=== PATIENT | male | born 1980 | race Caucasian/White ===

== ENCOUNTER 2024-03-03 15:37 | Emergency (ER) | payer BC, SELFPAY ==
[2024-03-03 15:38] VITALS: BP 153/90; PULSE 86; RESP 20; TEMP 37.1; O2SAT 98; BMI 27.7
--- NOTE | 2024-03-03 15:43 | ED_ITS ---
<Statement entered by Reilly Juares MD - 03/03/24 22:13> I was consulted by the KASSI, and we discussed the complexity of the problems being addressed. I approved the treatment and management plan for this patient's care in the emergency department, thus performing a substantive portion of the medical decision making. Reilly Juares MD, [place], [facility] Discharge Plan Disposition Patient Disposition: Home, Self-Care Condition: Good Prescriptions Prescriptions: New pantoprazole [Protonix] 40 mg tablet,delayed release (DR/EC) 40 mg PO BID 14 Days Qty: 28 0RF Referrals Follow up/Referrals: Santiago Adrian [Referring] - See instructions Provider,MD Ashley [Primary Care Provider] - See instructions Activity Restrictions/Add. Instructions Additional Instructions/Restrictions: Please consider establishing care with a primary care provider of your choice. Please call tomorrow to make an appointment with Dr. Adrian's office. Please return to the emergency department for any worsening signs or symptoms as needed Clinical Impressions Clinical Impression: Abdominal pain, acute, epigastric Instructions Patient Instructions: DI for Acute Abdominal Pain Discharge ED Provider: Reilly Juares General Adult HPI General Chief complaint: Abdominal Pain Stated complaint: abdominal pain Time Seen by Provider: 03/03/24 15:40 History of Present Illness HPI narrative: For evaluation of acute abdominal pain. Patient states that he was at his desk and had acute onset of epigastric abdominal pain 1445. Patient has no significant past medical history is on no home medications and has had no previous abdominal surgery. Patient rates the pain at an 8 out of 10 at onset and currently at the time of arrival to the emergency department. He has no cardiac chest pain shortness of breath fever chills hemoptysis hematochezia and melena vomiting or diarrhea but does have nausea with the pain. Related Data Previous Rx's Medication Instructions Recorded pantoprazole 40 mg tablet,delayed 40 mg PO BID 14 days #28 tabs 03/03/24 release (Protonix) Allergies Allergy/AdvReac Type Severity Reaction Status Date / Time No Known Allergies Allergy Verified 03/03/24 15:47 [facility] Disclaimer: The information contained in this section may have been updated after the patient was seen, as this information can be updated by other users. Social History (Updated 03/03/24 @ 16:42 by ADELAIDA Spear) Smoking Status: Never smoker alcohol intake: current alcohol intake frequency: holidays/special occasions only current occupational status: employed Travel in the last 8 weeks: None ROS Obtained: Yes Systems reviewed as appropriate & no additional complaints except as documented Physical Exam General General appearance: alert and in no apparent distress Head Head exam: atraumatic and normal inspection Eye Eye exam: Present normal appearance and EOMI ENT ENT exam: Present normal exam and normal oropharynx Chest Chest inspection: Present normal inspection and symmetric chest wall rise; Absent tenderness Respiratory Respiratory exam: Present normal lung sounds bilaterally; Absent respiratory distress, wheezes, stridor or accessory muscle use Cardiovascular Cardiovascular exam: Present regular rate and normal rhythm Abdominal Exam Abdominal exam: Present soft, tenderness (Tender to palpation in the epigastrium) and normal bowel sounds; Absent guarding or rebound Extremities Exam Extremities exam: Present normal inspection and full ROM Back Exam Back exam: Present normal inspection and full ROM; Absent tenderness, CVA tenderness (R) or CVA tenderness (L) Neurological Exam Neurological exam: Present alert and oriented X3 Skin Skin exam: Present warm and dry Medical Decision Making Medical Records Medical records reviewed: Yes I reviewed the patient's medical records. David Inquiry Pt receiving controlled substance: No Vital Signs: 03/03/24 15:38 03/03/24 16:00 03/03/24 16:30 Temperature 98.7 F Temperature Source Oral Pulse Rate 75 78 Pulse Rate [Right Radial] 86 Respiratory Rate 20 Blood Pressure 142/75 H 129/87 Blood Pressure [Right Arm] 153/90 H Blood Pressure Mean [Right Arm] 111 Blood Pressure Source [Right Arm] Automatic Cuff Blood Pressure Position [Right Arm] Supine 02 Sat by Pulse Oximetry 98 97 95 Oxygen Delivery Method Room Air Room Air Room Air Lab Data Lab results reviewed: Yes I reviewed the patient's lab results. Lab Results 03/03/24 15:46: WBC 7.5, RBC 5.39, Hgb 17.0, Hct 51.4, MCV 95.5 H, MCH 31.6 H, MCHC 33.1, RDW 14.3, Plt Count 308, MPV 7.9, Neut % (Auto) 52.6, Lymph % (Auto) 38.1, [place] % (Auto) 5.8, Eos % (Auto) 2.4, Baso % (Auto) 1.1, Neut # (Auto) 4.0, Lymph # (Auto) 2.9, [place] # (Auto) 0.4, Eos # (Auto) 0.2, Baso # (Auto) 0.1, PT 10.4, INR 0.96, Sodium 143, Potassium 3.2 L, Chloride 107, Carbon Dioxide 30, Anion Gap 9.2, BUN 14, Creatinine 1.10, Estimated Creat Clear 131, Estimated GFR 72, Est GFR ( Amer) 88, Glucose 76, Calcium 9.4, Total Bilirubin 0.9, AST 45, ALT 48, Alkaline Phosphatase 56, Troponin I < 0.01, Total Protein 7.7, Albumin 4.5, Globulin 3.2, Albumin/Globulin Ratio 1.4, Lipase 81 03/03/24 15:46 03/03/24 15:46 Orders (Tests/Meds): ED MEDICATIONS Discontinued Medications Generic Name Dose Route Start Last Admin Trade Name Freq PRN Reason Stop Dose Admin Acetaminophen 1,000 mg 03/03/24 15:46 03/03/24 15:52 Acetaminophen 1,000mg/100ml Vial IV 03/03/24 15:47 1,000 mg ONCE ONE Administration Belladonna Alkaloids 60 ml 03/03/24 15:46 03/03/24 15:52 Belladonna Alkaloids 60 Ml Ml PO 03/03/24 15:47 60 ml ONCE ONE Administration Lactated Ringer's 1,000 mls @ 999 mls/hr 03/03/24 15:46 03/03/24 15:52 Lactated Ringer's 1000 Ml Bag IV 03/03/24 16:46 999 mls/hr .Q1H1M ONE Administration Iopamidol 75 ml 03/03/24 16:13 03/03/24 16:17 Iopamidol-370 (76%);100ml Bottle IV 03/03/24 16:14 75 ml ONCE ONE Administration Ketorolac Tromethamine 15 mg 03/03/24 15:46 03/03/24 15:52 Ketorolac 30mg/Ml Vial IV 03/03/24 15:47 15 mg ONCE ONE Administration Sodium Chloride 10 ml 03/03/24 16:13 03/03/24 16:17 Sodium Chloride 0.9% 10ml Syr (Rad Only) IV 03/03/24 16:14 10 ml ONCE ONE Administration ORDERS Category Date Time Status CT abdomen pelvis w con Stat Cat Scan 03/03/24 15:46 Completed Chest XR -- portable [XR chest portable] Stat Exams 03/03/24 15:46 Completed CBC w/Auto Diff [Complete Blood Count Auto Diff] Stat Lab 03/03/24 15:46 Completed CMP [Comprehensive Metabolic Panel] Stat Lab 03/03/24 15:46 Completed INR [Prothrombin Time INR] Stat Lab 03/03/24 15:46 Completed Lipase Stat Lab 03/03/24 15:46 Completed Trop I [Troponin I] Stat Lab 03/03/24 15:46 Completed Troponin I Q3H Lab 03/03/24 19:00 Ordered Troponin I Q3H Lab 03/03/24 22:00 Ordered Medical Decision Narrative: In summary patient is a 43-year-old male who presents to the emergency department for evaluation of acute epigastric abdominal pain. Patient is hemodynamically stable upon arrival, afebrile. Physical exam is remarkable for tenderness to palpation in the epigastrium with no rebound or guarding or rigidity. Bowel sounds are normal active. Breath sounds are equal bilaterally and patient is in a normal sinus rhythm on the bedside monitor. Differential diagnosis includes GERD, esophagitis, ulcer, cholelithiasis/cholecystitis, acute pancreatitis, ACS etc. Initial workup will be conducted with hematologic labs CT scan of the abdomen pelvis plain film chest x-ray twelve-lead EKG. Initial interventions include crystalloid bolus Toradol Tylenol GI cocktail. Initial workup reviewed by me shows that his hematologic labs are nonactionable including a normal troponin. My informal interpretation of the CT scan abdomen pelvis with contrast shows no acute processes.. Upon repeat evaluation patient has had complete resolution of his pain after administration of GI cocktail.. Given this I had interactive discussion with the patient about referral to to gastroenterology for an upper endoscopy. Given this patient is appropriate with GI. Patient has known PCP and I recommended that he establish care with one. Critical Care Critical Care Time Critical Care Time: No
--- NOTE | 2024-03-03 15:46 | CT_ITS ---
FINAL REPORT CLINICAL HISTORY: Acute abdominal pain FINDINGS: CT OF THE ABDOMEN AND PELVIS WITH CONTRAST Axial CT images of the abdomen and pelvis were obtained after the administration of IV contrast. Coronal and sagittal reformatted images were also obtained and reviewed.This study was performed with techniques to keep radiation doses as low as reasonably achievable (ALARA). Individualized dose reduction techniques using automated exposure control or adjustment of mA and/or kV according to the patient's size were employed. Abdomen: Mild atelectasis is noted at the lung bases.. The heart is normal in size. The liver has an unremarkable appearance, without evidence of mass or biliary ductal dilatation. Mild nonspecific gallbladder wall thickening is identified. There is questionable sludge or noncalcified stones in the gallbladder. The spleen is unremarkable. No adrenal mass is present. The pancreas has an unremarkable appearance. The kidneys are normal, without evidence of mass or hydronephrosis. The aorta is normal in caliber. There is no free fluid or adenopathy. No mass or abnormal fluid collection is seen. Pelvis: The appendix is unremarkable. The urinary bladder is unremarkable. No inflammatory process is seen. There is no evidence of mass or adenopathy. There is no evidence of bowel obstruction. A small umbilical hernia is seen containing fat only. IMPRESSION: Mild gallbladder wall thickening with questionable sludge or stones. Gallbladder ultrasound could further evaluate. Authenticated and ERN
--- NOTE | 2024-03-03 15:46 | XR_ITS ---
FINAL REPORT CLINICAL HISTORY: Epigastric abdominal pain FINDINGS: SINGLE VIEW CHEST The heart size is normal. The mediastinum is within normal limits. No acute pulmonary abnormality is identified. There is no evidence of pneumothorax. The bony thorax is intact. IMPRESSION: No acute cardiopulmonary process. Authenticated and ERN
[2024-03-03] MEDS: LACTATED RINGERS 1000ML 1,000 ML 999 ML IV (15:52)
[2024-03-03] MEDS: BELLADONNA ALKALOIDS 60 ML ML PO (15:52)
[2024-03-03] MEDS: ACETAMINOPHEN 1,000MG/100ML VIAL 1000 MG IV (15:52)
[2024-03-03] MEDS: KETOROLAC 30MG/ML VIAL 15 MG IV (15:52)
[2024-03-03 15:54] LABS: Basophils # 0.1 K/mm3 (0-0.2); Basophils % 1.1 % (0.1-2.0); Eosinophils # 0.2 K/mm3 (0.0-0.4); Eosinophils % 2.4 % (0.1-12.0); Hematocrit 51.4 % (42.0-52.0); Lymphocytes # 2.9 K/mm3 (0.7-4.5); Lymphocytes % 38.1 % (10-50); Mean Corpuscular HGB Conc 33.1 g/dL (31.8-35.4); Mean Corpuscular Hemoglobin 31.6 pg (27.0-31.2); Mean Corpuscular Volume 95.5 fl (80-94); Mean Platelet Volume 7.9 fl (7.4-10.4); Monocytes # 0.4 K/mm3 (0.1-1.0); Monocytes % 5.8 % (1.7-9.3); Neutrophils % 52.6 % (37.0-80.0); Platelet Count 308 K/mm3 (142-424); Red Blood Count 5.39 M/mm3 (4.60-6.20); Red Cell Distribution Width 14.3 % (11.5-17.5); White Blood Count 7.5 K/mm3 (4.8-10.8)
[2024-03-03 15:59] LABS: Chloride 107 mmol/L (98-107); Potassium 3.2 mmoL/L (3.5-5.1); Sodium 143 mmol/L (136-145)
[2024-03-03 16:00] VITALS: BP 142/75; PULSE 75; O2SAT 97
[2024-03-03 16:01] LABS: Alanine Aminotransferase 48 U/L (12-78); Alkaline Phosphatase 56 U/L (38-126); Anion Gap 9.2 mEq/L (5-15); Aspartate Amino Transferase 45 U/L (17-59); Bilirubin,Total 0.9 mg/dl (0.2-1.3); Blood Urea Nitrogen 14 mg/dl (9-20); Carbon Dioxide 30 mmol/L (22.0-30.0); Creatinine Clearance Estimated 131 mL/min (50-200); Estimated Glomerular Filt Rate 72 ml/min (>60); GFR (African American) 88 ML/MIN (>60); Lipase 81 U/L (23-300)
[2024-03-03 16:02] LABS: Albumin Level 4.5 g/dl (3.5-5.0); Albumin/Globulin Ratio 1.4 (1.1-1.8); Calcium 9.4 mg/dl (8.4-10.2); Globulin 3.2 g/dL (1.3-3.2); Glucose 76 mg/dl (74-100); INR 0.96 (0.9-1.1); Prothrombin Time 10.4 seconds (10.1-12.5); Total Protein,Serum 7.7 g/dl (6.3-8.2)
--- NOTE | 2024-03-03 16:12 | PC.NURSE ---
PT GONE TO RADIOLOGY
[2024-03-03 16:15] LABS: Troponin I < 0.01 ng/ml (0.00-0.034)
[2024-03-03] MEDS: SODIUM CHLORIDE 0.9% 10ML SYR (RAD ONLY) 10 ML IV (16:17)
[2024-03-03] MEDS: IOPAMIDOL-370 (76%);100ML BOTTLE 75 ML IV (16:17)
--- NOTE | 2024-03-03 16:23 | PC.NURSE ---
Pt back to room from [facility]
[2024-03-03 16:30] VITALS: BP 129/87; PULSE 78; O2SAT 95
--- NOTE | 2024-03-03 16:37 | PC.NURSE ---
PT AMBULATED AROUND ER WITH NO DIZZINESS
[2024-03-03 17:08] VITALS: BP 139/91; PULSE 79; RESP 18; TEMP 36.6; O2SAT 96
== END 2024-03-03 17:08 | disposition home or self-care (01) ==
PROVIDERS: Physician Assistant; Emergency Provider Student in an Organized Health Care Education/Training Program
DX: R10.13 Epigastric pain (principal); E87.6 Hypokalemia
CPT/HCPCS: 71045; 74177; 80053; 83690; 84484; 85025; 85610; 96361; 96374; 96375; 99285; J0131; Q9967